=== PATIENT | female | born 1985 | race Two or more races ===

== ENCOUNTER 2018-12-13 01:22 | Emergency (ER) | payer OTHER ==
[~2018-12-13] VITALS: Ht 167.6 cm; Wt 51.3 kg
--- NOTE | 2018-12-13 01:40 | NUR ---
DAVID FROM HOME FOR ETOH; POSSIBLE UNWITNESSED GLF; PT VERBAL, NOT ANSWERING QUESTION APPROPRIETLY, PT PLACED ON MONITOR, VSS, NAD NOTED, PENDING MD TOTH
[2018-12-13] MEDS ORDERED: OLANZAPINE 10 MG VIAL IM ONE ×2 (02:00→02:11)
--- NOTE | 2018-12-13 03:19 | NUR ---
BROUGHT BY RADIOLOGY FOR CT
[2018-12-13 03:48] VITALS: BP 109/69
--- NOTE | 2018-12-13 04:20 | NUR ---
Patient discharged to home in stable condition. Written and verbal after care instructions given. Patient verbalizes understanding of instruction. IV removed. Catheter intact and site benign. Pressure and 4x4 applied to site. No bleeding noted.
== END 2018-12-13 04:21 | disposition home or self-care (01) ==
LOC: ER 01:24
DX: F10.129 Alcohol abuse with intoxication, unspecified (principal); S00.83XA Contusion of other part of head, initial encounter; R06.4 Hyperventilation; F41.9 Anxiety disorder, unspecified; W18.39XA Other fall on same level, initial encounter; Y93.89 Activity, other specified; Y92.89 Other specified places as the place of occurrence of the external cause; Y99.8 Other external cause status
CPT/HCPCS: 36415; 70450; 72125; 80305; 80307; 84703; 96372; 99284; J3490; G0480